=== PATIENT | male | born 1985 | race Hispanic/Latino ===

== ENCOUNTER → 2025-03-12 | Outpatient (CLI) | payer OTHER ==
--- NOTE | 2025-03-12 11:56 | HMCIMG ---
US ABDOMINAL COMPLETE HISTORY: Right lower abdominal pain COMPARISON: None TECHNIQUE: Multiple transverse and longitudinal ultrasound images of the abdomen were obtained. FINDINGS: Abdominal aorta and inferior vena cava are unremarkable. The visualized portion of the pancreas is within normal limits. Liver measures 15 cm. No gallstone is seen. Common duct measures 2 mm. No evidence of gallbladder wall thickening is seen. Both kidneys are seen. Right kidney measures 10 x 4 x 6 cm. Left kidney measures 10 x 4 x 4 cm. Bilateral renal pelvis fullness. No hydronephrosis is seen of the both kidneys. The spleen is grossly unremarkable. IMPRESSION: 1. No gallstone or ductal dilatation is seen. 2. No hydronephrosis is seen.
== END | disposition home or self-care (01) ==
LOC: RAH 07:44 → EEVIPCON 07:44
PROVIDERS: ATTEND Physical Medicine & Rehabilitation
DX: R10.31 Right lower quadrant pain (principal)
CPT/HCPCS: 76700